=== PATIENT | male | born 1960 | race Caucasian/White ===

== ENCOUNTER 2023-04-14 06:49 | Day surgery (SDC) | payer BC ==
[~2023-04-14] VITALS: Ht 182.9 cm; Wt 62.8 kg
[2023-04-14] MEDS ORDERED: TYLENOL 500MG500 MG PO (07:45)
[2023-04-14] MEDS ORDERED: PACERONE200 MG PO (07:45)
[2023-04-14] MEDS ORDERED: B-12 250 MCG (07:46)
[2023-04-14] MEDS ORDERED: LOPRESSOR 225 MG/TAB PO (07:47)
[2023-04-14] MEDS ORDERED: SENNA-S 50 MG-81 TAB PO (07:47)
[2023-04-14] MEDS ORDERED: CLARITIN 1010 MG/TAB PO (07:48)
[2023-04-14] MEDS ORDERED: MULTI VITAMINS1 TAB PO (07:48)
[2023-04-14] MEDS ORDERED: ATROVENT I0.2 MG/1 M IH (07:49)
[2023-04-14] MEDS ORDERED: NICODERM C21 MG/PATC TD (07:49)
[2023-04-14] MEDS ORDERED: FLEXERIL 1010 MG/TAB PO (07:49)
[2023-04-14] MEDS ORDERED: ROXICODONE 55 MG/TAB PO (07:50)
[2023-04-14 07:59] LABS: ALBUMIN 2.8 gm/dL (3.4-4.8); CALCIUM 9.2 mg/dL (8.4-10.2); CREATININE, serum 0.78 mg/dL (0.72-1.25)
[2023-04-14 08:10] VITALS: BP 117/78; PULSE 93; TEMP 97.1
[2023-04-14 13:50] VITALS: BP 111/62; PULSE 92; TEMP 97.6
[2023-04-14 14:05] VITALS: BP 124/65; PULSE 94
[2023-04-14 14:20] VITALS: BP 111/61; PULSE 94
[2023-04-14 14:35] VITALS: BP 103/59; PULSE 94
--- NOTE | 2023-04-14 15:00 | NUR ---
1350 RETURNS TO ROOM 7 PER CART. AWAKE, ALERT. RESP UNLABORED. HOB ELEVATED 40 DEGREES. REPOSTIONS ON CART WITH ASSIST. VITAL SIGNS OBTAINED. ABD SOFT. DRESSING RIGHT AND LEFT ABD SITES CLEAN DRY AND INTACT. PATIENT REPORTS MODERATE DISCOMFORT. DEEP BREATHES AND COUGHS OKAY, WITH ENCOURAGEMENT. CALL LIGHT AT SIDE. IN ROOM 1405 TOLERATES FEW PO ICE CHIPS. SWALLOWS OKAY 1420 CONVERSES WITH WIDE. NO C/O PAIN 1435 DISCHARGE INSTRUCTIONS REVIEWED. PATIENT AND VERBALIZE UNDERSTANDING. COPY PROVIDED IN DISCHARGE FOLDER 1445 SITS ON EDGE OF CART. DRESSES WITH ASSIST FROM
--- NOTE | 2023-04-14 15:33 | NUR ---
Jig And Fixture Repairer met with patient and his , Sujey to discuss DME needs. Patient has previously had a j-tube and used a DME company out of [place]. Patient would prefer to use a more local company, [facility]. LETY discussed Home Health services with patient who declined and did not feel it necessary. Patient's , Sujey advised she is home and will provide assistance. Sujey is familiar with the process from last time. LETY contacted LETY Mohr at patient's PCP office ([facility]) and requested recent History and Physical, which Fani provided. LETY faxed referral to [facility]. Fani obtained signature on nutrition order form, then faxed it to [facility]. LETY contacted Vincent at [facility] who confirmed he had all needed documentation and advised he already spoke with about cigar packer and picker.
== END 2023-04-14 15:00 | disposition home or self-care (01) ==
LOC: SDCO 06:49
PROVIDERS: Surgery
DX: C16.0 Malignant neoplasm of cardia (principal); R13.10 Dysphagia, unspecified; R63.4 Abnormal weight loss; Z87.891 Personal history of nicotine dependence
CPT/HCPCS: J0690; J1805; J2371; J2405; J2704; J3010; J7120

== ENCOUNTER 2023-05-03 08:12 | Day surgery (SDC) | payer BC ==
[~2023-05-03] VITALS: Ht 182.9 cm; Wt 62.5 kg
[~2023-05-03 08:12] MED LIST: ATROVENT I0.2 MG/1 M IH; B-12 250 MCG; CLARITIN 1010 MG/TAB PO; FLEXERIL 1010 MG/TAB PO; LOPRESSOR 225 MG/TAB PO; MULTI VITAMINS1 TAB PO; NICODERM C21 MG/PATC TD; PACERONE200 MG PO; ROXICODONE 55 MG/TAB PO; SENNA-S 50 MG-81 TAB PO; TYLENOL 500MG500 MG PO
[2023-05-03 09:05] VITALS: BP 129/83; PULSE 109; TEMP 97
[2023-05-03 09:30] VITALS: BP 127/72; PULSE 78
--- NOTE | 2023-05-03 11:41 | NUR ---
[id number]: H/O FROM MASHA LEWIS IN PROCEEDURE ROOM S/P J-TUBE EXCHANGE A&O, BASELINE, VSS ON RA AT BEDSIDE PROVIDED ICE CHIPS TO WET MOUTH PT HAD STARTED TF AT FULL RATE AFTER NPO X 10 HRS, AND EXPERIENCED RUQ PAIN (DESPITE JTUBE IN [place]). DR ROJAS NOTIFIED AND AT BEDSIDE. PT ASKING FOR IVF TO COVER 10HR CESSATION - VORB FOR PORTACATH ACCESS, 1L BOLUS, PORTACATH DC WHEN DONE AFTER 300CC HEPLOCK. ADMINISTERED AND TOLERATED. PT HAS REMAINED A&O, NAD, VSS ON RA, BEGINNING TO TOLERATE TF (ADVISED TO PAUSE AND SLOWLY RAMP UP TF, BUT PT NOT RECEPTIVE, TURNED DOWN RATE BY 5ML/HR INSTEAD) OTHERWISE DENIES COMPLAINT WITH STEADY GAIT, BASELINE D/C INSTRUCTIONS, ANY FOLLOW UP REVIEWED AND HANDED TO PT. ALL QUESTIONS AND CONCERNS ADDRESSED TO PT SATISFACTION. TAKEN TO EXIT VIA W/C WITH ALL BELONGINGS AND PAPERWORK IN HAND BY WHO IS DRIVING
--- NOTE | 2023-05-03 12:29 | NUR ---
hoe worker met with patient and spouse and provided written and verbal education regarding living will and durable power of estate planning attorney for health care. Patient verbalized his understanding of above documents. Worker and Andrew Pérez assisted patient and spouse complete above documents. Worker took copy of documents for EMR and provided the original and copies to spouse. Worker provided education on the TPOPP form, to the spouse, and advised that patient would need to complete the form with his primary care physician.
== END 2023-05-03 11:15 | disposition home or self-care (01) ==
LOC: SDCO 08:12
DX: Z46.59 Encounter for fitting and adjustment of other gastrointestinal appliance and device (principal); R63.4 Abnormal weight loss; R63.30 Feeding difficulties, unspecified; F17.200 Nicotine dependence, unspecified, uncomplicated; Z90.49 Acquired absence of other specified parts of digestive tract; Z85.028 Personal history of other malignant neoplasm of stomach
CPT/HCPCS: J1644; J7120